=== PATIENT | male | born 1950 | race Caucasian/White ===

== ENCOUNTER 2018-02-23 12:15 | Outpatient (CLI) | payer OTHER ==
--- NOTE | 2018-02-23 15:51 | PET ---
PET CT: HISTORY: 67-year-old male with colorectal cancer (cecum). Exam requested for initial staging. Surgery was perf ormed on 01/30/18. TECHNIQUE: PET scanning with CT attenuation correction was performed from the base of the brain through the prox imal thighs following the intravenous administration of 11.5 mCi [id number] in the right antecubital fos sa. Imaging was performed after an uptake interval of 51 minutes. COMPARISON: None. CORRELATION: CT abdomen and pelvis dated 01/26/18 from [facility]. FINDINGS: No hypermetabolic lymph nodes are seen in the neck, chest, axilla, abdomen, pelvis, or inguinal regio ns. No hypermetabolic pulmonary nodules, liver, adrenal, or skeletal lesions are identified. There is physiologic activity in the GI and tracts, and visualized portions of the brain. The CT scan used for attenuation correction demonstrates no evidence of pleural effusions or ascites. There are bilateral renal cysts and sigmoid diverticulosis. Postop changes are seen in the right low er quadrant. IMPRESSION: No evidence of metastatic disease. POS: [facility]
== END 2018-02-23 12:16 | disposition home or self-care (01) ==
LOC: PET 12:15
PROVIDERS: ATTEND Internal Medicine Hematology & Oncology
DX: C18.9 Malignant neoplasm of colon, unspecified (principal)
CPT/HCPCS: 78815; A9552

== ENCOUNTER 2018-08-28 13:50 | Outpatient (CLI) | payer BC ==
[~2018-08-28 13:50] MED LIST: Iopamidol 370 76% 100 ML VIAL ONE
--- NOTE | 2018-08-28 16:25 | CT ---
CT CHEST AND ABDOMEN AND PELVIS UTILIZING IV CONTRAST: INDICATIONS: History of cecal malignancy, status post resection, dated 01/28/2018. COMPARISON: PET CT, dated 02/23/2018. CONTRAST: Isovue-370 100 mL. FINDINGS: There is a right IJ chest wall port in place. There is calcified granuloma within the right upper lobe. There are calcified lymph nodes within the right hilar region. There is a 5 mm subpleural pulmonary nodule within the right middle lobe. No a dditional pulmonary nodule is demonstrated. No pathologically enlarged lymph nodes seen within the mediastinal, hilar, or axillary regions. There are mild calcifications involving the coronary arteries. No focal hepatic lesion is evident. There are gallstones within the gallbladder. The pancreas and adrenal glands are normal appearing. There are bilateral renal cysts. The largest within the right kidney is seen within the lower pole, measuring 3.6 cm. The largest within the left kidney is seen within the left mid kidney, measuring 4 cm. There are two slightly hyperdense lesions involving the superior pole left kidney, which in ret rospect review of the CT examination, may reflect slightly dilated renal calices. These two foci are seen on image 95 of the coronal series, measuring 1 to 1.1 cm in size a piece There are mild vascular calcifications noted involving the abdominal aorta. The pancreas and adrenal glands are normal appearing. There are calcified granuloma within the spleen and liver. No pathologically enlarged lymph nodes are evident. There is post surgical change of a right hemicolectomy and establishment of an ileocolonic anastomosi s within the right upper lobe. There is no evidence of bowel obstruction. No free fluid is evident. There is a 1.8 cm nodular prominence seen extending off the base of the prostate gland and extending into the base of the bladder, suspicious for a prostate nodule. The prostate is enlarged, measuring 5.3 cm. There is scattered colonic diverticula and a mild amount of retained stool within the colon. No suspicious osteolytic or osteoblastic lesion is identified. IMPRESSION: 1. No linus evidence to suggest recurrent local or metastatic disease. 2. Small, subpleural, 5 mm pulmonary nodule, right middle lobe, is seen on the comparison CT, dated 02/23/2018, not appreciably changed in size. Recommend continued followup. 3. Two slightly hyperdense oval lesions involving the superior pole, left kidney, may reflect mild c alyceal dilatation, due to the prominent cyst within the mid to superior pole, left kidney, causing s ome mild obstruction. This can be followed in a follow-up CT of the chest, abdomen, and pelvis. The re are bilateral renal cysts. 4. Findings of prior granulomatous disease. 5. Cholelithiasis. 6. Colonic diverticulosis. POS: [facility]
== END 2018-08-28 13:51 | disposition home or self-care (01) ==
LOC: SCSCT 13:50
PROVIDERS: ATTEND Internal Medicine Hematology & Oncology
DX: C18.0 Malignant neoplasm of cecum (principal); R91.1 Solitary pulmonary nodule; N28.9 Disorder of kidney and ureter, unspecified; N28.1 Cyst of kidney, acquired; K80.20 Calculus of gallbladder without cholecystitis without obstruction; K57.30 Diverticulosis of large intestine without perforation or abscess without bleeding
CPT/HCPCS: 71260; 74177

== ENCOUNTER 2021-03-23 07:33 | Outpatient (CLI) | payer BC | END 2021-03-23 07:34 | disposition home or self-care (01) | LOC: BICULT 07:33 | PROVIDERS: ATTEND Internal Medicine Gastroenterology | DX: R10.11 Right upper quadrant pain (principal); Z85.038 Personal history of other malignant neoplasm of large intestine; K82.8 Other specified diseases of gallbladder | CPT/HCPCS: 76705 ==